=== PATIENT | female | born 1985 | race Caucasian/White ===

== ENCOUNTER → 2016-10-15 | Day surgery (SDC) | payer OTHER ==
[~2016-10-15] VITALS: Ht 160 cm; Wt 55.9 kg
[~2016-10-15] MED LIST: *MEPERIDINE 25 MG INJ VIAL PERIprocedural Use ONLY ONE; *morphine SULFATE 8 MG/ML PERIprocedure ONLY ONE; ACETAMINOPHEN 1000 MG/100 ML VIAL IV ONE; CHLORHEXIDINE GLUCONATE 2 % 1 PACK (2 CLOTHS) TOPICAL PRN; DEXAMETHASONE SOD PHOS 4 MG/ML VIAL ONE; DO NOT ADM ANY ANTICOAGULANT DRUGS PRN; FAMOTIDINE 20 MG/2 ML VIAL ONE; INSULIN HUMAN REGULAR 1,000 UNITS/10 ML VIAL SQ PRN; KETOROLAC TROMETHAMINE 60 MG/2 ML (IM) VIAL IM ONE; LACTATED RINGER'S 1000 ML IV PRN; METOPROLOL TARTRATE 25 MG TAB PO PRN; MIDAZOLAM HCL 2 MG/2 ML VIAL ONE; NEOSTIGMINE METHYLSULFATE 10 MG/10 ML VIAL IV PUSH ONE; NORMOSOL R INJ 1,000 ML IV ONE; ONDANSETRON HCL 4 MG/2 ML VIAL IV PUSH ONE; ONDANSETRON HCL 4 MG/2 ML VIAL IV PUSH PRN; POVIDONE IODINE 5% (ANTISEPSIS KIT) 4 APPLICATIONS EACH NARE PRN; PROPOFOL 200 MG/20 ML AMP IV ONE; SE-NCHW CHEW; SODIUM CHLORID 0.9% 500 ML IV PRN; fentaNYL CITRATE 250 MCG/5 ML AMP ONE; oxyCODONE/ACETAMINOPHEN 5 MG/325 MG TAB PO PRN
[2016-10-15 11:56] VITALS: BP 107/69; PULSE 69; RESP 20; TEMP 98.1; O2SAT 99
[2016-10-15 12:23] LABS: AUTOMATED NEUTROPHIL # 3.9 TH/MM3 (1.8-7.7); BASOPHIL % 0.6 % (0.0-2.0); EOSINOPHIL % 0.7 % (0.0-4.0); HEMO FLAGS DIFF FINAL; LYMPH % 33.9 % (9.0-44.0); LYMPHOCYTE # 2.3 TH/MM3 (1.0-4.8); MEAN CELL VOLUME 83.9 FL (80.0-100.0); MEAN CORPUSCULAR HEMOGLOBIN 28.4 PG (27.0-34.0); MEAN CORPUSCULAR HGB CONC 33.9 % (32.0-36.0); MONO % 7.6 % (0.0-8.0); NEUT % 57.2 % (16.0-70.0); PLATELET COUNT 178 TH/MM3 (150-450); RED BLOOD COUNT 4.29 MIL/MM3 (4.00-5.30); RED CELL DISTRIBUTION WIDTH 12.9 % (11.6-17.2); WHITE BLOOD COUNT 6.8 TH/MM3 (4.0-11.0)
[2016-10-15 12:32] LABS: BLOOD, URINE NEG (NEG); COMMENT (UR) CULT NOT INDICATED; CULTURE IF INDICATED CULT NOT INDICATED; GLUCOSE,URINE NEG (NEG); KETONE, URINE NEG (NEG); MUCUS URINE FEW /lpf (OCC); NITRITE,URINE NEG (NEG); PH, URINE 6.5 (5.0-8.5); SQUAMOUS EPITHELIAL CELL URINE 3 /hpf (0-5); URINE COLOR YELLOW (YELLW/STRAW)
[2016-10-15 12:38] LABS: ANION GAP 7 MEQ/L (5-15); AST (GOT) 11 U/L (15-37); BICARBONATE 27.4 MEQ/L (21.0-32.0); BLOOD UREA NITROGEN 10 MG/DL (7-18); CHLORIDE 107 MEQ/L (98-107); GLOMERULAR FILTRATION RATE 81 ML/MIN (>89); POTASSIUM 3.8 MEQ/L (3.5-5.1); SODIUM (NA) 141 MEQ/L (136-145)
[2016-10-15 12:42] LABS: ALKALINE PHOSPHATASE 62 U/L (45-117); ALT (GPT) 19 U/L (10-53); BETA HCG QUANT LESS THAN 1 MIU/ML (0-5); TOTAL BILIRUBIN ADULT 0.7 MG/DL (0.2-1.0)
[2016-10-15 16:00] VITALS: BP 96/54; PULSE 69; RESP 20; TEMP 98.5; O2SAT 98
--- NOTE | 2016-10-16 08:16 | MP ---
cc: DANI GARCIA DATE OF SURGERY 10/15/2016 PREOPERATIVE DIAGNOSES 1. Severe pelvic pain. 2. Large ovarian cyst versus torsion. POSTOPERATIVE DIAGNOSES 1. Severe pelvic pain. 2. Large ovarian cyst versus torsion. 3. Torsion of the fallopian tube. 4. Pelvic adhesions to the colon. 5. Possible ectopic. PROCEDURE Laparoscopic exam. Aspiration of a left ovarian cyst. Lysis of adhesions. Removal of mass from the colon. ANESTHESIA General endotracheal intubation. SURGEON Elmer Garcia MD FINDINGS Examination under anesthesia revealed a pelvic mass that was cystic in nature in the posterior cul-de-sac. The laparoscopic exam revealed normal uterus, normal right tube, absent right ovary. The left ovary had a large 4.5 cm cystic mass which was drained; it looked like a hemorrhagic cyst. There was torsion of the fallopian tube and it was pulling down towards the colon. There were very thin adhesions from the fallopian tube to the colon and a small mass which resembled ectopic that was removed and sent for pathologic evaluation. The uterus was normal. The left fallopian tube after we untorsed it was normal in length and caliber. All the tissue looked healthy. There was no evidence of endometriosis. COMPLICATIONS None. COUNTS Correct. ESTIMATED BLOOD LOSS 20 cc. FLUIDS Crystalloids. CONDITION The patient tolerated the procedure well and went to the recovery room in good condition. DESCRIPTION OF PROCEDURE The patient was taken to the operating room, identified by name band and verbally given a general anesthetic and prepped and draped in the usual fashion for vaginal laparoscopic surgery in the dorsal lithotomy position. An examination under anesthesia was carried out with the above findings. I did not put a Hulka clamp in because she had a vaginal discharge earlier which revealed numerous white cells which made me think she may have a pelvic cervicitis. Therefore I did not put the Hulka clamp in but rather went to the umbilical area and made a small incision . A 5-mm trocar was inserted without difficulty under direct vision and a pneumoperitoneum was created with 3 liters of CO2. Inferior lateral to the umbilicus we placed two 5-mm ports. At this time we pulled the ovary up, it was not torsed at all and there were no adhesions around this ovary and an 18-gauge needle we aspirated some bloody fluid. It looked like a hemorrhagic corpus luteal cyst. Her pictures from her previous surgery 7 months ago were visualized and inspected and that ovary was perfectly normal at that time. We slowly aspirated the cyst and there was a little bleeding from the ovary but that quickly stopped. Then we encountered the fallopian tube; it was kinked over but looked perfectly healthy the entire length but there was a small piece of scar tissue/adhesions from the distal fallopian tube to the sigmoid colon. This was pulled up and there was a little portion of what looked like an ectopic on the sigmoid colon. We lysed that adhesion and pulled gently. It detached from the colon easily and inspection of that area was performed and there was no significant damage to the sigmoid colon, in fact even the serosa was intact. The specimen was then removed and the pelvis and abdomen were irrigated with a large amount of fluid. The surgical site was inspected. The ovary was inspected. Hemostasis was adequate and at this point the ovary looked fairly normal and in good position. The air was released from the abdomen. The trocars were removed without difficulty and the skin was repaired with a 4-0 Monocryl in a subcuticular manner. She tolerated the procedure well and went to the recovery room in good condition. She did receive Toradol 15 mg in the operating theater. R. MD KATIE Larkin/MACARIO /7:02 PM /8:00 AM
== END | disposition home or self-care (01) ==
LOC: HSDC 10:38
PROVIDERS: ATTEND Obstetrics & Gynecology
DX: N83.202 Unspecified ovarian cyst, left side (principal); N73.6 Female pelvic peritoneal adhesions (postinfective); N83.8 Other noninflammatory disorders of ovary, fallopian tube and broad ligament; N83.522 Torsion of left fallopian tube; Z01.818 Encounter for other preprocedural examination
CPT/HCPCS: 00840; 49322; 80053; 81001; 84702; 85025; 88305; J0131; J1100; J1885; J2175; J2250; J2270; J2405; J2710; J3010

== ENCOUNTER 2017-03-27 11:04 | Emergency (ER) | payer OTHER ==
[~2017-03-27] VITALS: Ht 160 cm; Wt 58.2 kg
[~2017-03-27 11:04] MED LIST changes: -*MEPERIDINE 25 MG INJ VIAL PERIprocedural Use ONLY ONE; -*morphine SULFATE 8 MG/ML PERIprocedure ONLY ONE; -ACETAMINOPHEN 1000 MG/100 ML VIAL IV ONE; -CHLORHEXIDINE GLUCONATE 2 % 1 PACK (2 CLOTHS) TOPICAL PRN; -DEXAMETHASONE SOD PHOS 4 MG/ML VIAL ONE; -DO NOT ADM ANY ANTICOAGULANT DRUGS PRN; -FAMOTIDINE 20 MG/2 ML VIAL ONE; -INSULIN HUMAN REGULAR 1,000 UNITS/10 ML VIAL SQ PRN; -KETOROLAC TROMETHAMINE 60 MG/2 ML (IM) VIAL IM ONE; -LACTATED RINGER'S 1000 ML IV PRN; -METOPROLOL TARTRATE 25 MG TAB PO PRN; -MIDAZOLAM HCL 2 MG/2 ML VIAL ONE; -NEOSTIGMINE METHYLSULFATE 10 MG/10 ML VIAL IV PUSH ONE; -NORMOSOL R INJ 1,000 ML IV ONE; -ONDANSETRON HCL 4 MG/2 ML VIAL IV PUSH ONE; -ONDANSETRON HCL 4 MG/2 ML VIAL IV PUSH PRN; -POVIDONE IODINE 5% (ANTISEPSIS KIT) 4 APPLICATIONS EACH NARE PRN; -PROPOFOL 200 MG/20 ML AMP IV ONE; -SODIUM CHLORID 0.9% 500 ML IV PRN; -fentaNYL CITRATE 250 MCG/5 ML AMP ONE; -oxyCODONE/ACETAMINOPHEN 5 MG/325 MG TAB PO PRN
[2017-03-27 11:06] VITALS: BP 110/56; PULSE 65; RESP 12; TEMP 99.8; O2SAT 98
[2017-03-27] MEDS ORDERED: SODIUM CHLOR 0.9% 1000 ML INJ 1,000 ML IV ONE (12:18)
[2017-03-27] MEDS ORDERED: ACETAMINOPHEN 325 MG TAB PO ONE (12:30)
[2017-03-27] MEDS ORDERED: ONDANSETRON HCL 4 MG/2 ML VIAL IVP ONE (12:30)
[2017-03-27] MEDS ORDERED: SODIUM CHLORIDE 0.9% FLUSH 10 ML FLUSH IVF PRN (12:30)
--- NOTE | 2017-03-27 12:30 | PD ---
HPI Chief Complaint: GI Complaint Time Seen by Provider: 12:17 Travel History International Travel<30 days: No Contact w/Intl Traveler<30days: No Traveled to known affect area: No History of Present Illness HPI 31-year-old female who is 15 weeks , presents emergency Department with sudden onset nausea, vomiting, and diarrhea. Patient has low- grade fever of 100.1 in triage. Patient states she is concerned about possible listeria. She states she's been eating a lot of "bagged salads" recently. Patient does also have a cough, but no sore throat headache or upper respiratory symptoms otherwise. Abdominal pain is 3 out of 10. It is crampy. She denies urinary symptoms. Patient states symptoms started last night at approximately 1 AM. She has no known drug allergies. PFS Past Medical History Genitourinary: Yes Medical other: Yes (HPV screen positive 2007) Reproductive: Yes (dyspareunia,pelvic pain, vaginal discharge) ?: Past Surgical History Gynecologic Surgery: Yes (right oophorectomy) Oral Surgery: Yes (wisdome teeth) Other Surgery: Yes Social History Alcohol Use: No Tobacco Use: No Substance Use: No Allergies-Medications (Allergen,Severity, Reaction): Coded Allergies: No Known Allergies (Unverified Adverse Reaction, Unknown, 03/27/17) Reported Meds & Prescriptions Reported Meds & Active Scripts Active Reported Se-Rudi 19 29-1 mg Chew ( Vit W/ Ferrous Fumara Chew) 1 Chew 1 Tab CHEW DAILY Review of Systems Except as stated in HPI: all other systems reviewed are Neg General / Constitutional: Positive: Fever, Chills Eyes: No: Visual changes HENT: No: Headaches Cardiovascular: No: Chest Pain or Discomfort Respiratory: No: Shortness of Breath Gastrointestinal: Positive: Nausea, Vomiting, Diarrhea, Abdominal Pain, Loss of Appetite, No: Hematemesis, Hematochezia, Constipation, Changes in Bowel Habits, Indigestion, Dysphagia Genitourinary: Positive: Other (15 weeks .), No: Urgency, Frequency, Dysuria Musculoskeletal: No: Pain Skin: No Rash Neurologic: No: Weakness Psychiatric: No: Depression Endocrine: No: Polydipsia Hematologic/Lymphatic: No: Easy Bruising Physical Exam Narrative GENERAL: Patient appears in no obvious distress. SKIN: Warm and dry. Normal color. Normal turgor. No rash. HEAD: Atraumatic. Normocephalic. EYES: Pupils equal and round. No scleral icterus. No injection or drainage. ENT: No nasal bleeding or discharge. Mucous membranes pink and moist. Pharynx is clear. Airway is patent. NECK: Trachea midline. Supple and nontender. CARDIOVASCULAR: Regular rate and rhythm. No murmurs gallops or rubs. RESPIRATORY: No accessory muscle use. Clear to auscultation. Breath sounds equal bilaterally. GASTROINTESTINAL: Abdomen soft, mild diffuse tenderness throughout, nondistended. No point tenderness or rebound. No CVA tenderness. Hepatic and splenic margins not palpable. MUSCULOSKELETAL: Extremities without clubbing, cyanosis, or edema. No obvious deformities. NEUROLOGICAL: Awake and alert. No obvious cranial nerve deficits. Motor grossly within normal limits. Five out of 5 muscle strength in the arms and legs. Normal speech. PSYCHIATRIC: Appropriate mood and affect; insight and judgment normal. Data Data Last Documented VS Vital Signs Date Time Temp Pulse Resp B/P (MAP) Pulse Ox O2 Delivery O2 Flow Rate FiO2 03/27/17 11:06 99.8 65 12 110/56 (74) 98 Orders Orders Complete Blood Count With Diff (03/27/17 11:35) Comprehensive Metabolic Panel (03/27/17 11:35) Urinalysis - C+S If Indicated (03/27/17 11:35) Lipase (03/27/17 11:35) Influenzae A/B Antigen (03/27/17 11:39) Iv Access Insert/Monitor (03/27/17 12:18) Ecg Monitoring (03/27/17 12:18) Heart Tones (03/27/17 12:18) Sodium Chloride 0.9% Flush (Ns Flush) (03/27/17 12:30) Sodium Chlor 0.9% 1000 Ml Inj (Ns 1000 M (03/27/17 12:18) Ondansetron Inj (Zofran Inj) (03/27/17 12:30) Acetaminophen (Tylenol) (03/27/17 12:30) Stool Afb Culture And Stain (03/27/17 12:25) Stool Wbc (Leukocytes) (03/27/17 12:25) Labs Laboratory Tests Test 03/27/17 11:50 White Blood Count 7.7 TH/MM3 Red Blood Count 4.23 MIL/MM3 Hemoglobin 12.7 GM/DL Hematocrit 36.0 % Mean Corpuscular Volume 85.0 FL Mean Corpuscular Hemoglobin 29.9 PG Mean Corpuscular Hemoglobin Concent 35.2 % Red Cell Distribution Width 13.4 % Platelet Count 166 TH/MM3 Mean Platelet Volume 9.5 FL Neutrophils (%) (Auto) 91.6 % Lymphocytes (%) (Auto) 4.1 % Monocytes (%) (Auto) 3.9 % Eosinophils (%) (Auto) 0.2 % Basophils (%) (Auto) 0.2 % Neutrophils # (Auto) 7.1 TH/MM3 Lymphocytes # (Auto) 0.3 TH/MM3 Monocytes # (Auto) 0.3 TH/MM3 Eosinophils # (Auto) 0.0 TH/MM3 Basophils # (Auto) 0.0 TH/MM3 CBC Comment DIFF FINAL Differential Comment Urine Color YELLOW Urine Turbidity CLEAR Urine pH 5.5 Urine Specific [place] 1.026 Urine Protein TRACE mg/dL Urine Glucose (UA) NEG mg/dL Urine Ketones 80 mg/dL Urine Occult Blood NEG Urine Nitrite NEG Urine Bilirubin NEG Urine Urobilinogen LESS THAN 2.0 MG/DL Urine Leukocyte Esterase NEG Urine RBC LESS THAN 1 /hpf Urine WBC LESS THAN 1 /hpf Urine Squamous Epithelial Cells 6 /hpf Urine Mucus FEW /lpf Microscopic Urinalysis Comment CULT NOT INDICATED Blood Urea Nitrogen 12 MG/DL Creatinine 0.58 MG/DL Random Glucose 88 MG/DL Total Protein 7.2 GM/DL Albumin 3.3 GM/DL Calcium Level 8.1 MG/DL Alkaline Phosphatase 82 U/L Aspartate Amino Transf (AST/SGOT) 11 U/L Alanine Aminotransferase (ALT/SGPT) 18 U/L Total Bilirubin 0.8 MG/DL Sodium Level 136 MEQ/L Potassium Level 4.1 MEQ/L Chloride Level 105 MEQ/L Carbon Dioxide Level 23.7 MEQ/L Anion Gap 7 MEQ/L Estimat Glomerular Filtration Rate 121 ML/MIN Lipase 112 U/L [facility] Medical Decision Making Medical Screen Exam Complete: Yes Emergency Medical Condition: Yes Differential Diagnosis Acute nausea vomiting. Diarrhea. Influenza. Colitis. Gallbladder disease. Narrative Course Patient medically stable at time of exam. Labs ordered including CBC, CMP, lipase, and urinalysis. heart tones are checked and found to be within normal limits. Rapid influenza is sent to the lab and found to be positive for influenza A. Patient is given IV Zofran 4 mg, as well as 650 mg Tylenol by mouth. Patient is also given 1000 mL normal saline bolus. Discussed with patient treatment with Tamiflu but she does not want to do that as she is . Patient is given Zofran 4 mg one every 6 hours when necessary nausea #12. Patient is to rest, push fluids, take Tylenol as needed. Work note is given. Patient is to return if symptoms worsen. Diagnosis Primary Impression: Influenza A (H1N1) Referrals: [facility] Patient Instructions: General Instructions, H1N1 Influenza (ED) Departure Forms: Work Release Enter return to work date: Mar 30, 2017 Additional Instructions: Rapid influenza is sent to the lab and found to be positive for influenza A. Patient is given IV Zofran 4 mg, as well as 650 mg Tylenol by mouth. Patient is also given 1000 mL normal saline bolus. Discussed with patient treatment with Tamiflu but she does not want to do that as she is . Patient is given Zofran 4 mg one every 6 hours when necessary nausea #12. Patient is to rest, push fluids, take Tylenol as needed. Work note is given. Patient is to return if symptoms worsen. Med/Other Pt SpecificInfo: Prescription(s) given Disposition: 01 DISCHARGE HOME Condition: Stable Hudson Irvin Mar 27, 2017 12:30
[2017-03-27 12:32] LABS: AUTOMATED NEUTROPHIL # 7.1 TH/MM3 (1.8-7.7); BASOPHIL % 0.2 % (0.0-2.0); EOSINOPHIL % 0.2 % (0.0-4.0); HEMOGLOBIN 12.7 GM/DL (11.6-15.3); LYMPH % 4.1 % (9.0-44.0); LYMPHOCYTE # 0.3 TH/MM3 (1.0-4.8); MEAN CORPUSCULAR HEMOGLOBIN 29.9 PG (27.0-34.0); MEAN CORPUSCULAR HGB CONC 35.2 % (32.0-36.0); MEAN PLATELET VOLUME 9.5 FL (7.0-11.0); MONO % 3.9 % (0.0-8.0); MONOCYTE # 0.3 TH/MM3 (0-0.9); NEUT % 91.6 % (16.0-70.0); PLATELET COUNT 166 TH/MM3 (150-450); RED BLOOD COUNT 4.23 MIL/MM3 (4.00-5.30); RED CELL DISTRIBUTION WIDTH 13.4 % (11.6-17.2); WHITE BLOOD COUNT 7.7 TH/MM3 (4.0-11.0)
[2017-03-27 12:51] LABS: ALBUMIN 3.3 GM/DL (3.4-5.0); AST (GOT) 11 U/L (15-37); BICARBONATE 23.7 MEQ/L (21.0-32.0); BLOOD UREA NITROGEN 12 MG/DL (7-18); CALCIUM 8.1 MG/DL (8.5-10.1); CHLORIDE 105 MEQ/L (98-107); CREATININE 0.58 MG/DL (0.50-1.00); GLOMERULAR FILTRATION RATE 121 ML/MIN (>89); GLUCOSE,RANDOM 88 MG/DL (74-106); LIPASE 112 U/L (73-393); SODIUM (NA) 136 MEQ/L (136-145)
[2017-03-27 12:53] LABS: ALT (GPT) 18 U/L (10-53)
[2017-03-27 12:55] LABS: ALKALINE PHOSPHATASE 82 U/L (45-117); BILIRUBIN, URINE NEG (NEG); BLOOD, URINE NEG (NEG); GLUCOSE,URINE NEG (NEG); KETONE, URINE 80 mg/dL (NEG); MUCUS URINE FEW /lpf (OCC); NITRITE,URINE NEG (NEG); PH, URINE 5.5 (5.0-8.5); SQUAMOUS EPITHELIAL CELL URINE 6 /hpf (0-5); TOTAL BILIRUBIN ADULT 0.8 MG/DL (0.2-1.0); TOTAL PROTEIN 7.2 GM/DL (6.4-8.2); URINE COLOR YELLOW (YELLW/STRAW); URINE LEUKOCYTE ESTERASE NEG (NEG)
[2017-03-27] MEDS ORDERED: ZOFR4TAB PO (13:07)
== END 2017-03-27 13:39 | disposition home or self-care (01) ==
LOC: NEPC 11:04
DX: O99.512 Diseases of the respiratory system complicating pregnancy, second trimester (principal); J10.1 Influenza due to other identified influenza virus with other respiratory manifestations; O21.9 Vomiting of pregnancy, unspecified; Z3A.15 15 weeks gestation of pregnancy
CPT/HCPCS: 80053; 81001; 83690; 85025; 87804; 96361; 96374; 99284; J2405; J7030

== ENCOUNTER 2017-09-13 03:38 | Inpatient (IN) ==
--- NOTE | 2017-09-13 04:13 | ED ---
Triage/Final Diagnosis - Visit Information Date of evaluation: 09/13/17 Reason for evaluation: threatened labor - Evaluation Baseline heart rate: 120 Variability: Moderate (11-25) monitor accelerations: Present monitor decelerations: None Cervical dilation (cm): 3 Cervical effacement (%): 80 station: -3
--- NOTE | 2017-09-13 04:19 | ED ---
HPI - - General Source: patient Mode of arrival: ambulatory Limitations: no limitations - History of Present Illness MD complaint: abdominal pain, "contractions", other (Bloody show) Onset (ago): hour(s) (Onset 4h ago) Pain Consistency: intermittent Location: pelvis, abdomen Severity: moderate quality: Cramping Relieving factors: none Exacerbating factors: other Associated symptoms: denies other symptoms Vaginal discharge: none Vaginal bleeding: other (bloody show) - General Chief complaint: OB/Uterine Contractions Stated complaint: Poss contractions/39wks - History of Present Illness HPI narrative: 32 year-old , IP at 39.1 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 She reports that they have increased in intensity and frequency and are now occurring every 3-5 minutes. She reports that they are more frequent when she walks occurring every 3 minutes, and at rest every 5 minutes. She reports that they are painful. There are no aggravating or alleviating factors and no attempted treatments. She reports that she is having bloody she was well. She reports that she was seen on 09/11/17 for diarrhea and had a cervical exam at that time of cervical exam of 1 cm dilated. She denies any leaking of fluid or vaginal bleeding. She reports good movement. 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 ( 001, 1 with pudendal nerve injury.) Patient : Yes Psychiatric history: Reports: no psych history Family history: Reports: no significant family history - Social History Smoking Status: Never smoker Second hand exposure: No Alcohol intake: never Substance use type: does not use Physical Exam - General Limitations: no limitations - Head Head exam: atraumatic, normocephalic, normal inspection - Eye Eye exam: Present: normal appearance - ENT ENT exam: Present: normal exam - Neck Neck exam: Present: normal inspection - Chest Chest inspection: Present: normal inspection - Respiratory Respiratory exam: Present: normal lung sounds bilaterally - Cardiovascular Cardiovascular exam: Present: regular rate, normal rhythm - Abdominal Exam Abdominal exam: Present: other (Gravid) - Rectal Exam Rectal exam: Present: deferred - External exam: Present: normal external exam Bimanual exam: Present: other (SVE 34/80/-3, ballotable; SVE changed to 4/C/-3 , ballotable) - Extremities Exam Extremities exam: Present: normal inspection, full ROM - Neurological Exam Neurological exam: Present: alert, oriented X3, CN II-XII intact, normal gait - Expanded Neurological Exam Patient oriented to: Present: person, place, time Speech: Present: fluid speech - Psychiatric Psychiatric exam: Present: normal affect, normal mood - Skin Skin exam: Present: warm, dry, intact, normal color heart tones are in the 130s with moderate long-term variability, good accelerations, no decelerations noted. This is reactive NST and category 1 heart rate tracing (Sary Alejandra) Initial Documented Vital Signs Pulse Rate 72 09/13/17 04:10 Blood Pressure 115/74 09/13/17 04:10 Last Documented Vital Signs Temperature 98.2 F 09/13/17 04:15 Pulse Rate 65 09/13/17 04:15 Respiratory Rate 18 09/13/17 04:15 Blood Pressure 115/74 09/13/17 04:10 MDM - OB/Uterine Contractions - MDM Narrative Medical decision making narrative: Assessment/plan: 1. IUP at 39.1 2. Early labor: Patient with ongoing contractions at term, scheduled for primary delivery tomorrow a.m. for history of pudendal nerve injury with prior delivery. The patient was consented for delivery with risks , benefits, and alternatives discussed at length. Risks include but are not limited to pain, infection, bleeding, injury to other organs like the bladder/ bowel/nerves/vessels, injury to the baby, need for repeat operation, need for blood transfusion, need for a hysterectomy, wound infection/breakdown, and other possible complications. All of her questions were answered. Will prepare patient for delivery. Dr. Martínez was notified and will assume care for the patient. 3. well-being: Reassuring testing with reactive NST category 1 heart rate tracing 4. History of pudendal nerve injury (Sary Alejandra)
--- NOTE | 2017-09-13 08:22 | P.HPOB ---
History of Present Illness Service: Patient Name: Smita Hall Date of : 85 Patient Status: Emergency Emergency Provider: Sary Alejandra Date: 09/13/17 04:16 Initialization Date: 09/13/17 04:16 HPI - , HISTORY AND PHYSICAL EXAMINATION - General Source: patient Mode of arrival: ambulatory Limitations: no limitations - History of Present Illness MD complaint: abdominal pain, "contractions", other (Bloody show) Onset (ago): hour(s) (Onset 4h ago) Pain Consistency: intermittent Location: pelvis, abdomen Severity: moderate quality: Cramping Relieving factors: none Exacerbating factors: other Associated symptoms: denies other symptoms Vaginal discharge: none Vaginal bleeding: other (bloody show) - General Chief complaint: OB/Uterine Contractions Stated complaint: Poss contractions/39wks - History of Present Illness HPI narrative: 32 year-old , IP at 39.1 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 She reports that they have increased in intensity and frequency and are now occurring every 3-5 minutes. She reports that they are more frequent when she walks occurring every 3 minutes, and at rest every 5 minutes. She reports that they are painful. There are no aggravating or alleviating factors and no attempted treatments. She reports that she is having bloody she was well. She reports that she was seen on 09/11/17 for diarrhea and had a cervical exam at that time of cervical exam of 1 cm dilated. She denies any leaking of fluid or vaginal bleeding. She reports good movement. (Sary Alejandra) - Related Data Home Medications Medication Instructions Recorded Confirmed polyethylene glycol 3350 [Miralax] 17 g PO EVERY OTHER DAY PRN 09/13/17 09/13/17 [id number] 1-dha 1 cap PO DAILY 09/13/17 09/13/17 Allergies Allergy/AdvReac Type Severity Reaction Status Date / Time No Known Allergies Allergy Unverified 09/13/17 03:52 Review of Systems All other systems reviewed negative except as stated in HPI PMFSH - - Past Medical History Medical history: Reports: no medical history Surgical history: Reports: other (History of right oophorectomy, left ovarian cystectomy) [employer] history: Reports: Other ( 001, 1 with pudendal nerve injury.) Patient : Yes Psychiatric history: Reports: no psych history Family history: Reports: no significant family history - Social History Smoking Status: Never smoker Second hand exposure: No Alcohol intake: never Substance use type: does not use Physical Exam - General Limitations: no limitations - Head Head exam: atraumatic, normocephalic, normal inspection - Eye Eye exam: Present: normal appearance - ENT ENT exam: Present: normal exam - Neck Neck exam: Present: normal inspection - Chest Chest inspection: Present: normal inspection - Respiratory Respiratory exam: Present: normal lung sounds bilaterally - Cardiovascular Cardiovascular exam: Present: regular rate, normal rhythm - Abdominal Exam Abdominal exam: Present: other (Gravid) - Rectal Exam Rectal exam: Present: deferred - External exam: Present: normal external exam Bimanual exam: Present: other (SVE 34/80/-3, ballotable; SVE changed to 4/C/-3 , ballotable) - Extremities Exam Extremities exam: Present: normal inspection, full ROM - Neurological Exam Neurological exam: Present: alert, oriented X3, CN II-XII intact, normal gait - Expanded Neurological Exam Patient oriented to: Present: person, place, time Speech: Present: fluid speech - Psychiatric Psychiatric exam: Present: normal affect, normal mood - Skin Skin exam: Present: warm, dry, intact, normal color heart tones are in the 130s with moderate long-term variability, good accelerations, no decelerations noted. This is reactive NST and category 1 heart rate tracing (Sary Alejandra) Initial Documented Vital Signs Pulse Rate 72 09/13/17 04:10 Blood Pressure 115/74 09/13/17 04:10 Last Documented Vital Signs Temperature 98.2 F 09/13/17 04:15 Pulse Rate 65 09/13/17 04:15 Respiratory Rate 18 09/13/17 04:15 Blood Pressure 115/74 09/13/17 04:10 MDM - OB/Uterine Contractions - MDM Narrative Medical decision making narrative: Assessment/plan: 1. IUP at 39.1 2. Early labor: Patient with ongoing contractions at term, scheduled for primary delivery tomorrow a.m. for history of pudendal nerve injury with prior delivery. The patient was consented for delivery with risks , benefits, and alternatives discussed at length. Risks include but are not limited to pain, infection, bleeding, injury to other organs like the bladder/ bowel/nerves/vessels, injury to the baby, need for repeat operation, need for blood transfusion, need for a hysterectomy, wound infection/breakdown, and other possible complications. All of her questions were answered. Will prepare patient for delivery. Dr. Martínez was notified and will assume care for the patient. 3. well-being: Reassuring testing with reactive NST category 1 heart rate tracing 4. History of pudendal nerve injury (Sary Alejandra) Primary Care Physician: Meri Dudley DO - Inpatient Certification If this patient has been admitted as an Inpatient: I certify that the inpatient services were ordered in accordance with Medicare regulations governing the order. This includes certification that hospital inpatient services are reasonable and necessary and in the case of services not specified as inpatient-only under 42 CFR 419.22(n), that they are appropriately provided as inpatient services in accordance to with the 2-midnight benchmark under 43 CFR 412.3(e) PMFSH - History History Provided By: Patient - Tobacco History Second Hand Smoke Exposure: No Smoking Status: Never smoker - Alcohol History How Often Do You Have a Drink Containing Alcohol: Never - Travel History Recent Travel in the [place] Within the Last 8 Weeks: No Recent Travel Out of the Country Within the Last 8 Weeks: No - Immunization History Tetanus Immunization: <5 Years Hx Influenza Vaccine This Season: Yes Medications and Allergies Allergies Allergy/AdvReac Type Severity Reaction Status Date / Time No Known Allergies Allergy Unverified 09/13/17 03:52 Home Medications Medication Instructions Recorded Confirmed Type polyethylene glycol 3350 [Miralax] 17 g PO EVERY OTHER DAY PRN 09/13/17 History [id number] 1-dha 1 cap PO DAILY 09/13/17 09/13/17 History Exam Vital signs: Vital Signs 09/13/17 04:10 09/13/17 04:15 Temperature 98.2 F Pulse Rate 72 65 Respiratory Rate 18 Blood Pressure 115/74 Intake & Output 09/12/17 09/13/17 09/13/17 18:59 06:59 18:59 Weight 70.307 kg Caprini VTE Risk Assessment Caprini VTE Risk Assessment: Moderate/High Risk (score >= 2) (, delivery, will place SCDs) Caprini Risk Assessment Model: Point Value = 1 Point Value = 2 Point Value = 3 Point Value = 5 Age 41-60 Minor surgery BMI > 25 kg/m2 Swollen legs Varicose veins or History of unexplained or recurrent spontaneous Oral contraceptives or hormone replacement Sepsis (< 1 month) Serious lung disease, including pneumonia (< 1 month) Abnormal pulmonary function Acute myocardial infarction Congestive heart failure (< 1 month) History of inflammatory bowel disease Medical patient at bed rest Age 61-74 Arthroscopic surgery Major open surgery (> 45 min) Laparoscopic surgery (> 45 min) Malignancy Confined to bed (> 72 hours) Immobilizing plaster cast Central venous access Age >= 75 History of VTE Family history of VTE Factor V Leiden Prothrombin [id number] Lupus anticoagulant Anticardiolipin antibodies Elevated serum homocysteine Heparin-induced thrombocytopenia Other congenital or acquired thrombophilia Stroke (< 1 month) Elective arthroplasty Hip, pelvis, or leg fracture Acute spinal cord injury (< 1 month) Prophylaxis Regimen: Total Risk Factor Score Risk Level Prophylaxis Regimen 0-1 Low Early ambulation 2 Moderate Order ONE of the following: *Sequential Compression Device (SCD) *Heparin 5000 units SQ BID 3-4 Higher Order ONE of the following medications: *Heparin 5000 units SQ TID *Enoxaparin/Lovenox 40 mg SQ daily (WT < 150 kg, CrCl > 30 mL/min) *Enoxaparin/Lovenox 30 mg SQ daily (WT < 150 kg, CrCl > 10-29 mL/min) *Enoxaparin/Lovenox 30 mg SQ BID (WT < 150 kg, CrCl > 30 mL/min) AND/OR *Sequential Compression Device (SCD) 5 or more Highest Order ONE of the following medications: *Heparin 5000 units SQ TID (Preferred with Epidurals) *Enoxaparin/Lovenox 40 mg SQ daily (WT < 150 kg, CrCl > 30 mL/min) *Enoxaparin/Lovenox 30 mg SQ daily (WT < 150 kg, CrCl > 10-29 mL/min) *Enoxaparin/Lovenox 30 mg SQ BID (WT < 150 kg, CrCl > 30 mL/min) AND *Sequential Compression Device (SCD)
[2017-09-13] MEDS ORDERED: ceFAZolin Inj 2,000 MG in Sodium Chlor 0.9% Inj 80 ML IV.SIG SCH (09:00)
[2017-09-13 09:21] LABS: Baso % (Auto) 0.3 % (0.0-2.0); Eos % (Auto) 0.4 % (0.0-4.0); Hematocrit 37.7 % (35.0-46.0); Lymph # (Auto) 2.5 th/mm3 (1.0-4.8); Lymph % (Auto) 20.4 % (9.0-44.0); Mean Corpuscular HGB Conc 34.4 % (32.0-36.0); Mean Corpuscular Hemoglobin 30.3 pg (27.0-34.0); Mean Corpuscular Volume 88.2 fL (80.0-100.0); Mean Platelet Volume 10.5 fL (7.0-11.0); Mono # (Auto) 0.8 th/mm3 (0.0-0.9); Mono % (Auto) 6.9 % (0.0-8.0); Neut # (Auto) 8.7 th/mm3 (1.8-7.7); Platelet Count 150 th/mm3 (150-450); Red Blood Count 4.28 mil/mm3 (4.00-5.30); Red Cell Distribution Width 13.8 % (11.6-17.2); White Blood Count 12.1 th/mm3 (4.0-11.0)
[2017-09-13] MEDS ORDERED: Citric Acid/Sodium Citrate Liq 30 ML UDC ONE (10:34)
[2017-09-13] MEDS ORDERED: Morphine Sulfate PF Inj 5 MG/10 ML Ampul ONE (10:41)
[2017-09-13] MEDS ORDERED: Phenylephrine/NS 1000 MCG/10ML Syringe IV.PUSH ONE (12:00)
[2017-09-13] MEDS ORDERED: Ketorolac Inj 30 MG/ML (IVP) Vial IV.PUSH ONE (12:00)
[2017-09-13 12:06] LABS: Bilirubin,Urine Negative (Negative); Clarity,Urine Hazy (Clear); Color,Urine Yellow (Yellw/Straw); Glucose,Urine (UA) Negative (Negative); Leukocyte Esterase,Urine Small (Negative); Mucus,Urine Few /lpf (Occasional); Nitrite,Urine Negative (Negative); Specific Gravity,Urine 1.008 (1.002-1.035); Squamous Epithelial Cell,Urine 15 /hpf (0-5)
[2017-09-13 12:20] LABS: Amphetamine Urine With Conf Neg (Neg); Benzodiazepine Urine With Conf Neg (Neg)
[2017-09-13] MEDS ORDERED: Acetaminophen 325 MG Tablet PO PRN (12:36)
[2017-09-13] MEDS ORDERED: Oxytocin 30 Units/500ml Premix 30 UNITS/500 ML BAG IV.SIG ONE (12:36)
[2017-09-13] MEDS ORDERED: Simethicone 80 MG Chew Tablet PO PRN (12:36)
--- NOTE | 2017-09-13 12:45 | P.OBDELI ---
Procedure Note - Pre Op Diagnosis (1) Pudendal neuralgia (2) 40 weeks gestation of - Post Op Diagnosis (1) 40 weeks gestation of (2) Pudendal neuralgia Performed by: Christen Martínez MD Procedure: Primary Low Transverse Section Indication for Delivery: Other (prior maternal pudendal nerve injury, desired elective pirmary CD) Informed Consent Obtained: For anesthesia, For procedure Confirmed Correct: Patient, Procedure, Site, Time-out taken Anesthesia: Spinal Medication Prior to Procedure: As documented in eMAR Monitoring During Procedure: Blood pressure monitoring, Pulse oximetry Urinary Catheter: Inserted using sterile technique, To dependent drainage, ml urine output (100) Sterile Preparation: With 2% chlorexidine (Hibiclens) Position: Supine with wedge to right side, Supine with safety belt applied - Operative Features Skin Incision: Pfannenstiel Uterine Incision: Low transverse w/knife / blunt ext Membranes Ruptured: Artificially, Amount of liquid (copious), Appearance of fluid (clear) Presentation: Occiput anterior Status of : Viable, Cord blood Placenta Delivered: Intact Medications: Antibiotics, Oxytocin Estimated blood loss (mL): 500 Procedure Tolerated: Well Maternal Condition: Stable Baby Condition: Stable Procedure in Detail: dictation - Infant: Male Male A Delivery Date: 09/13/17 Delivery Time: 12:09 Weight: 3.84 kg score (1 min): 9 score (5 min): 9
[2017-09-13] MEDS ORDERED: Naloxone Inj 0.4 MG/ML Vial IV.PUSH PRN (15:43)
[2017-09-13] MEDS ORDERED: Oxytocin 30 Units/500ml Premix 30 UNITS/500 ML BAG IV.SIG PRN (17:37)
--- NOTE | 2017-09-13 19:23 | P.OP ---
Date of procedure: 09/13/17 Surgeon: Christen Martínez MD Operation and Findings: Procedure Note - Pre Op Diagnosis (1) Pudendal neuralgia (2) 40 weeks gestation of - Post Op Diagnosis (1) 40 weeks gestation of (2) Pudendal neuralgia Performed by: Christen Martínez MD Procedure: Primary Low Transverse Section Indication for Delivery: Other (prior maternal pudendal nerve injury, desired elective pirmary CD) Informed Consent Obtained: For anesthesia, For procedure Confirmed Correct: Patient, Procedure, Site, Time-out taken Anesthesia: Spinal Medication Prior to Procedure: As documented in eMAR Monitoring During Procedure: Blood pressure monitoring, Pulse oximetry Urinary Catheter: Inserted using sterile technique, To dependent drainage, ml urine output (100) Sterile Preparation: With 2% chlorexidine (Hibiclens) Position: Supine with wedge to right side, Supine with safety belt applied - Operative Features Skin Incision: Pfannenstiel Uterine Incision: Low transverse w/knife / blunt ext Membranes Ruptured: Artificially, Amount of liquid (copious), Appearance of fluid (clear) Presentation: Occiput anterior Status of : Viable, Cord blood Placenta Delivered: Intact Medications: Antibiotics, Oxytocin Estimated blood loss (mL): 500 Procedure Tolerated: Well Maternal Condition: Stable Baby Condition: Stable Procedure in Detail: - Infant Infant: Male Male A Infant Delivery Date: 09/13/17 Delivery Time: 12:09 Weight: 3.84 kg score (1 min): 9 score (5 min): 9 Complications: none Counts: Correct x 3 IVF 1700ml Maternal intraoperative findings: normal uterus tubes, and left ovary. Specimens: cord blood Dispo: to pacu Procedure in detail: After review of informed consent, pt was taken to the OR where spinal anesthesia was administered w/o complication. She had villanueva placed in sterile fashion. SCDs to bilateral extremities. Ancef 2 g IV given preincision. Abdomen and perineum were prepped and draped in sterile fashion. A Pfannenstiel skin incision was made with the scalpel and carried down to the underlying layer of fascia with the bovie. The fascia was incised in the midline; this incision was extended bilaterally w Arce scissors. The superior edge followed by the inferior edge of the fascia was grasped with sebastian clamps and from the rectus muscles with arce scissors and bluntly. Peritoneum entered bluntly. Bladder blade was inserted. A bladder flap was created with Metzenbaum scissors. A low transverse uterine incision was made with the scalpel and extended bluntly. Clear amniotic fluid noted. The head was grasped, flexed and brought to the level of the hysterotomy. Fundal pressure was used to deliver the head. The rest of the body readily followed. Cord blood collected. Baby was handed off to nursery team. IV infusion of pitocin was started immediately after the delivery of the infant. The placenta was removed with cord traction and uterine massage. The uterine cavity was cleared with moistened laparotomy sponges. The uterus was exteriorized and repaired in two layers with number 1 chromic in a running locked fashion followed by an imbricating layer. The posterior cul de sac was irrigated and suctioned. The uterus was noted to be hemostatic. It was returned to the abdomen. The peritoneum was closed with 2-0 chromic in a running fashion. Subcutaneous tissue was irrigated and hemostasis obtained w the bovie. The skin was closed with 3-0 monocryl in a subcuticular fashion. A sterile dressing was placed. PT was sent to pacu in stable condition.
[2017-09-13] MEDS ORDERED: Zolpidem Tartrate 5 MG Tablet PO PRN (21:00)
[2017-09-13] MEDS: Senna/Docusate Sodium 8.6/50 MG Tablet PO PRN (21:40)
[2017-09-13] MEDS: Ibuprofen 600 MG Tablet PO PRN (21:40)
[2017-09-14] MEDS: Ibuprofen 600 MG Tablet PO PRN ×3 (03:28→16:41)
[2017-09-14 05:49] LABS: Baso % (Auto) 0.1 % (0.0-2.0); Eos % (Auto) 0.3 % (0.0-4.0); Hematocrit 31.3 % (35.0-46.0); Hemoglobin 10.9 gm/dL (11.6-15.3); Lymph # (Auto) 1.9 th/mm3 (1.0-4.8); Lymph % (Auto) 15.5 % (9.0-44.0); Mean Corpuscular HGB Conc 34.7 % (32.0-36.0); Mean Corpuscular Hemoglobin 30.4 pg (27.0-34.0); Mean Corpuscular Volume 87.7 fL (80.0-100.0); Mean Platelet Volume 10.4 fL (7.0-11.0); Mono % (Auto) 8.1 % (0.0-8.0); Platelet Count 123 th/mm3 (150-450); Red Blood Count 3.57 mil/mm3 (4.00-5.30); Red Cell Distribution Width 13.8 % (11.6-17.2); White Blood Count 11.9 th/mm3 (4.0-11.0)
--- NOTE | 2017-09-14 08:42 | P.PNOB ---
Subjective Post op day: 1 Interval history: Doing well, Bleeding is light. Baby is doing well I was 8cm when they did my c/x Pain is well controlled Objective Vital Signs/I&O: Vital Signs 09/13/17 11:15 09/13/17 12:45 09/13/17 13:00 Temperature 97.7 F Pulse Rate 69 60 Respiratory Rate 18 18 18 Blood Pressure 92/53 L 95/50 L 09/13/17 13:15 09/13/17 13:30 09/13/17 13:45 Temperature Pulse Rate 63 60 60 Respiratory Rate 18 18 18 Blood Pressure 100/57 L 107/66 96/55 L 09/13/17 15:45 09/13/17 21:30 09/14/17 00:00 Temperature 97.8 F 98.4 F 98.5 F Pulse Rate 55 L 67 68 Respiratory Rate 16 18 16 Blood Pressure 105/61 112/77 90/45 L 09/14/17 03:30 Temperature 98.4 F Pulse Rate 70 Respiratory Rate 18 Blood Pressure 90/50 L Result Diagrams: 09/14/17 05:04 Objective Remarks: GENERAL: Well-nourished, well-developed patient. CARDIOVASCULAR: Regular rate and rhythm without murmurs, gallops, or rubs. RESPIRATORY: Breath sounds equal bilaterally. No accessory muscle use. ABDOMEN/GI: Abdomen soft, non-tender, bowel sounds present. Incision: Clean, dry and intact. Fundus: Firm, non-tender at umbilicus. GENITOURINARY: Light to moderate bleeding. EXTREMITIES: No cyanosis or edema, non-tender, without signs of DVT. Medications and IVs: Active Medications Acetaminophen (Tylenol) 650 mg PO Q6H PRN PRN Reason: PAIN SCALE 1 TO 2 Diphenhydramine HCl (Benadryl) 50 mg PO Q6H PRN PRN Reason: MILD TO MODERATE ITCHING Stop: 09/14/17 15:42 Diphenhydramine HCl (Benadryl Inj) 25 mg IV.PUSH Q6H PRN PRN Reason: MILD TO MODERATE ITCHING Stop: 09/14/17 15:42 Diphtheria/Pertussis/Tetanus Vacc (Boostrix Vaccine Inj) 0.5 ml IM .ONCE ONE Stop: 09/14/17 16:01 Lactated Ringer's (Lr 1000 Ml Inj) 1,000 mls @ 100 mls/hr IV.CONT .Q10H [facility] Stop: 09/14/17 13:36 Oxytocin (Pitocin 30 Units/Ns 500 Ml Premix) 30 units in 500 mls @ 100 mls/hr IV.SIG PRN PRN PRN Reason: Heavy bleeding Stop: 09/14/17 17:36 Cefazolin Sodium 2,000 mg/ (Sodium Chloride) 100 mls @ 200 mls/hr IV.SIG DIRECTOR HR COMMUNICATIONS [facility] Stop: 09/17/17 08:59 Lactated Ringer's (Lr 1000 Ml Inj) 1,000 mls @ 150 mls/hr IV.CONT .Q6H40M [facility] Measles/Mumps/Rubella Vaccine Live (M-M-R Ii Vaccine Inj) 0.5 ml SQ .ONCE ONE Stop: 09/14/17 16:01 Miscellaneous Information ([facility]) 1 each OTHER UNSCH PRN PRN Reason: SEE LABEL COMMENTS Stop: 09/14/17 15:42 Miscellaneous Information ([facility]) 1 each OTHER UNSCH PRN PRN Reason: SEE LABEL COMMENTS Stop: 09/14/17 15:42 Naloxone HCl (Narcan Inj) 0.4 mg IV.PUSH UNSCH PRN PRN Reason: SEE LABEL COMMENTS Stop: 09/14/17 15:42 Ondansetron HCl (Zofran Odt) 4 mg PO Q6H PRN PRN Reason: NAUSEA Oxycodone/Acetaminophen (Percocet 5/325 Mg) 2 tab PO Q4H PRN PRN Reason: PAIN SCALE 6 TO 10 Oxycodone/Acetaminophen (Percocet 5/325 Mg) 1 tab PO Q4H PRN PRN Reason: PAIN SCALE 3 TO 5 Senna/Docusate Sodium (Halie-Colace) 2 tab PO Q12H PRN PRN Reason: CONSTIPATION Last Admin: 09/13/17 21:40 Dose: 2 tab Simethicone (Mylicon Chew) 80 mg PO QID PRN PRN Reason: FLATULENCE Sodium Chloride (Ns Flush) 2 ml IV.FLUSH BID LETICIA Sodium Chloride (Ns Flush) 2 ml IV.FLUSH PRN PRN PRN Reason: FLUSH AFTER USING IV ACCESS Zolpidem Tartrate (Ambien) 5 mg PO HS PRN PRN Reason: INSOMNIA Assessment and Plan - Diagnosis (1) delivery due to maternal disorder Status: Acute (2) Pudendal neuralgia Code(s): G58.8 - Other specified mononeuropathies Status: Acute (3) 40 weeks gestation of Code(s): Z3A.40 - 40 weeks gestation of Status: Acute - Plan POD #1 Doing well Routine care
[2017-09-14] MEDS: Senna/Docusate Sodium 8.6/50 MG Tablet PO PRN (09:25)
[2017-09-14] MEDS ORDERED: Sodium Chlor 0.9% Inj 500 ML IV.SIG ONE (15:30)
[2017-09-14] MEDS ORDERED: Measles/Mumps/Rubella Vaccine Inj 0.5 ML Vial SQ ONE (16:00)
[2017-09-14] MEDS ORDERED: Diphtheria/Tetanus/Pertussis Vaccine Inj 0.5 ML Syringe IM ONE (16:00)
[2017-09-15] MEDS: Ibuprofen 600 MG Tablet PO PRN ×3 (01:17→17:23)
[2017-09-15] MEDS: Senna/Docusate Sodium 8.6/50 MG Tablet PO PRN ×2 (01:20→14:21)
--- NOTE | 2017-09-15 13:45 | P.PNOB ---
Subjective Post op day: 2 Objective Vital Signs/I&O: Vital Signs 09/14/17 14:20 09/14/17 15:20 09/14/17 15:45 Temperature 97.7 F Pulse Rate 73 69 75 Respiratory Rate 18 16 16 Blood Pressure 94/52 L 104/68 95/53 L 09/14/17 19:48 09/14/17 19:55 09/15/17 07:55 Temperature 98.4 F 98.4 F 98.4 F Pulse Rate 71 71 71 Respiratory Rate 17 17 20 Blood Pressure 95/63 L 95/63 L 103/62 Result Diagrams: 09/14/17 05:04 Objective Remarks: GENERAL: Well-nourished, well-developed patient. CARDIOVASCULAR: Regular rate and rhythm without murmurs, gallops, or rubs. RESPIRATORY: Breath sounds equal bilaterally. No accessory muscle use. ABDOMEN/GI: Abdomen soft, non-tender, bowel sounds present. Incision: Clean, dry and intact. Fundus: Firm, non-tender at umbilicus. GENITOURINARY: Light to moderate bleeding. EXTREMITIES: No cyanosis or edema, non-tender, without signs of DVT. Medications and IVs: Active Medications Acetaminophen (Tylenol) 650 mg PO Q6H PRN PRN Reason: PAIN SCALE 1 TO 2 Cefazolin Sodium 2,000 mg/ (Sodium Chloride) 100 mls @ 200 mls/hr IV.SIG BONUS CLERK [facility] Stop: 09/17/17 08:59 Ondansetron HCl (Zofran Odt) 4 mg PO Q6H PRN PRN Reason: NAUSEA Oxycodone/Acetaminophen (Percocet 5/325 Mg) 2 tab PO Q4H PRN PRN Reason: PAIN SCALE 6 TO 10 Oxycodone/Acetaminophen (Percocet 5/325 Mg) 1 tab PO Q4H PRN PRN Reason: PAIN SCALE 3 TO 5 Last Admin: 09/15/17 12:06 Dose: 1 tab Senna/Docusate Sodium (Halie-Colace) 2 tab PO Q12H PRN PRN Reason: CONSTIPATION Last Admin: 09/15/17 01:20 Dose: 2 tab Simethicone (Mylicon Chew) 80 mg PO QID PRN PRN Reason: FLATULENCE Sodium Chloride (Ns Flush) 2 ml IV.FLUSH BID LETICIA Sodium Chloride (Ns Flush) 2 ml IV.FLUSH PRN PRN PRN Reason: FLUSH AFTER USING IV ACCESS Zolpidem Tartrate (Ambien) 5 mg PO HS PRN PRN Reason: INSOMNIA Assessment and Plan - Diagnosis (1) Pudendal neuralgia Code(s): G58.8 - Other specified mononeuropathies Status: Acute (2) 40 weeks gestation of Code(s): Z3A.40 - 40 weeks gestation of Status: Acute (3) delivery due to maternal disorder Status: Acute - Plan POD #2 Doing well, spinal headache resolved with blood patch pain well managed with oral pain medication Routine care
[2017-09-16] MEDS: Ibuprofen 600 MG Tablet PO PRN ×2 (00:50→07:51)
[2017-09-16] MEDS: Senna/Docusate Sodium 8.6/50 MG Tablet PO PRN (07:51)
== END 2017-09-16 10:55 | disposition home or self-care (01) ==
LOC: HOBED 03:38 → MERGE 08:19 → H2E 08:19 → H1EA 14:38
PROVIDERS: ADMIT Obstetrics & Gynecology; ATTEND Obstetrics & Gynecology